=== PATIENT | male | born 1975 | race African-American/Black ===

== ENCOUNTER 2024-04-26 19:24 | Emergency (ER) | payer OTHER ==
[~2024-04-26] VITALS: Ht 175.2 cm; Wt 73.5 kg
[2024-04-26] MEDS ORDERED: Ondansetron Hydrochloride 4 MG TAB SL ONE (20:10)
[2024-04-26] MEDS ORDERED: Acetaminophen/Hydrocodone 5 MG/325 MG TABLET PO ONE (20:10)
== END 2024-04-26 20:41 | disposition home or self-care (01) ==
LOC: ED 19:24
DX: S62.316A Displaced fracture of base of fifth metacarpal bone, right hand, initial encounter for closed fracture (principal); W22.8XXA Striking against or struck by other objects, initial encounter; Y93.89 Activity, other specified; Y92.009 Unspecified place in unspecified non-institutional (private) residence as the place of occurrence of the external cause; Y99.8 Other external cause status

== ENCOUNTER → 2024-05-06 | Outpatient (CLI) | payer OTHER | END | disposition home or self-care (01) | LOC: ORTHO 02:18 | PROVIDERS: ATTEND Orthopaedic Surgery | DX: S62.346D Nondisplaced fracture of base of fifth metacarpal bone, right hand, subsequent encounter for fracture with routine healing (principal); X58.XXXD Exposure to other specified factors, subsequent encounter ==

== ENCOUNTER → 2024-05-21 | Outpatient (CLI) | payer OTHER | END | disposition home or self-care (01) | LOC: ORTHO 05-20 02:12 | PROVIDERS: ATTEND Orthopaedic Surgery | DX: S62.346D Nondisplaced fracture of base of fifth metacarpal bone, right hand, subsequent encounter for fracture with routine healing (principal); S62.304D Unspecified fracture of fourth metacarpal bone, right hand, subsequent encounter for fracture with routine healing; X58.XXXD Exposure to other specified factors, subsequent encounter ==

== ENCOUNTER → 2024-10-19 | Outpatient (CLI) | payer OTHER | END | disposition home or self-care (01) | LOC: US 08:06 | PROVIDERS: ATTEND Physician Assistant | DX: K76.0 Fatty (change of) liver, not elsewhere classified (principal); R94.5 Abnormal results of liver function studies ==

== ENCOUNTER → 2025-02-04 | Outpatient (CLI) | payer OTHER ==
[2025-02-04 11:49] LABS: HEMATOCRIT 43.2 % (42.0-52.0); MEAN CELL VOLUME 100.9 fl (80.0-94.0); MEAN CORPUSCULAR HGB 32.7 pg (27.0-31.0); MEAN CORPUSCULAR HGB CONC 32.4 g/dl (33.0-37.0); MEAN PLATELET VOLUME 10.6 fl (9.6-12.3); RED BLOOD COUNT 4.28 10*6/uL (4.50-5.90); RED CELL DISTRI WIDTH 13.9 % (0-14.5); WHITE BLOOD COUNT 10.8 10*3/uL (4.8-10.8)
[2025-02-04 12:29] LABS: ALKALINE PHOSPHATASE 92 U/L (46-116); BUN 8 mg/dl (9-23); CHLORIDE 104 mmol/L (98-107); CHOLESTEROL 224 mg/dL (<200); LDL CHOLESTEROL 122 mg/dL (9-159); POTASSIUM 3.4 mmol/L (3.4-5.1); SGPT/ALT 7 U/L (5-49); TRIGLYCERIDES 170 mg/dl (<150)
[2025-02-06 00:05] LABS: ALPHA 2-MACAROGLOBULINS 166 mg/dL (110-276); ALT (SGPT) P5P 8 IU/L (0-55); APOLIPOPROEIN A-1 176 mg/dL (101-178); BILIRUBIN, TOTAL 0.3 mg/dL (0.0-1.2); CHOLESTEROL, TOTAL 223 mg/dL (100-199); GGT 30 IU/L (0-65); GLUCOSE, SERUM 105 mg/dL (70-99); HAPTOGLOBIN 101 mg/dL (23-355); TRIGLYCERIDES 168 mg/dL (0-149)
== END | disposition home or self-care (01) ==
LOC: LAB 10:26
PROVIDERS: ATTEND Nurse Practitioner Family
DX: K76.0 Fatty (change of) liver, not elsewhere classified (principal); K25.3 Acute gastric ulcer without hemorrhage or perforation

== ENCOUNTER 2025-09-01 16:51 | Emergency (ER) | payer OTHER ==
[~2025-09-01] VITALS: Ht 170.1 cm; Wt 72.6 kg
[2025-09-01] MEDS ORDERED: NORVASC10 MG PO (17:10)
[2025-09-01] MEDS ORDERED: TOPROL XL25 MG PO (17:10)
[2025-09-01] MEDS ORDERED: SYMB160 INH (17:11)
[2025-09-01] MEDS ORDERED: HYDROCHLOROTHIA25 M1 PO (17:11)
[2025-09-01] MEDS ORDERED: VENT7GM INH (17:11)
[2025-09-01] MEDS ORDERED: PAROXETINE20 MG PO (17:11)
[2025-09-01] MEDS ORDERED: CEPHALEXIN500 M1 PO (17:29)
[2025-09-01] MEDS ORDERED: VIBRAMYCIN100 MG PO (17:29)
[2025-09-01] MEDS ORDERED: CEPHALEXIN 500 MG CAP PO ONE (17:35)
== END 2025-09-01 18:15 | disposition home or self-care (01) ==
LOC: ED 16:51
DX: S80.861A Insect bite (nonvenomous), right lower leg, initial encounter (principal); L03.115 Cellulitis of right lower limb; I10 Essential (primary) hypertension; J45.909 Unspecified asthma, uncomplicated; F32.A Depression, unspecified; W57.XXXA Bitten or stung by nonvenomous insect and other nonvenomous arthropods, initial encounter; Y93.89 Activity, other specified; Y92.89 Other specified places as the place of occurrence of the external cause; Y99.8 Other external cause status

== ENCOUNTER 2025-09-06 11:19 | Emergency (ER) | payer OTHER ==
[~2025-09-06] VITALS: Ht 170.1 cm; Wt 72.6 kg
[~2025-09-06 11:19] MED LIST: CEPHALEXIN500 M1 PO; HYDROCHLOROTHIA25 M1 PO; NORVASC10 MG PO; PAROXETINE20 MG PO; SYMB160 INH; TOPROL XL25 MG PO; VENT7GM INH; VIBRAMYCIN100 MG PO
[2025-09-06] MEDS ORDERED: Albuterol Sulf/Ipratropium 3 ML VIAL NEB ONE (12:45)
[2025-09-06 12:59] LABS: MEAN CELL VOLUME 99.3 fl (80.0-94.0); MEAN CORPUSCULAR HGB 32.4 pg (27.0-31.0); MEAN PLATELET VOLUME 9.9 fl (9.6-12.3); NUCLEATED RED BLOOD CELL 0.0 % (0.0-0.0); NUCLEATED RED BLOOD CELL 0.0 10*3/uL (0.0-0.0); PLATELET COUNT AUTOMATED 279 10*3/uL (130-400); RED CELL DISTRI WIDTH 12.8 % (0-14.5)
[2025-09-06 13:18] LABS: BUN 8 mg/dl (9-23)
[2025-09-06 13:22] LABS: NEUT % 64.4 % (47.0-73.0)
[2025-09-06 13:23] LABS: BASO # 0.1 10*3/uL (0.0-0.1); BASO % 0.7 % (0.0-1.0); EOS # 0.2 10*3/uL (0.0-0.4); EOS % 1.4 % (1.0-4.0); MONO # 1.5 10*3/uL (0.1-1.0); MONO % 13.4 % (3.0-9.0); NEUT # 7.1 10*3/uL (2.3-7.9)
[2025-09-06] MEDS ORDERED: AVPAK AZITHROM250 M1 PO (13:53)
[2025-09-06] MEDS ORDERED: PREDNISONE20 M1 PO (13:53)
[2025-09-06] MEDS ORDERED: AZITHROMYCIN 250 MG TAB PO ONE (13:55)
[2025-09-06] MEDS ORDERED: ALBUTEROL 8 GM INHALER INH ONE (14:05)
== END 2025-09-06 14:00 | disposition home or self-care (01) ==
LOC: ED 11:19
PROVIDERS: Nurse Practitioner Family
DX: J45.909 Unspecified asthma, uncomplicated (principal); I10 Essential (primary) hypertension; F32.A Depression, unspecified; Z20.822 Contact with and (suspected) exposure to COVID-19